=== PATIENT | female | born 1945 | race Caucasian/White ===

== ENCOUNTER → 2018-10-03 | Outpatient (CLI) | payer MEDICARE ==
--- NOTE | 2018-10-06 12:00 | MM ---
Reason for exam: screening (asymptomatic). Last mammogram was performed 1 year and 1 month ago. History: Patient is postmenopausal. Family history of breast cancer in cousin at age 60. MG 3D Screening Mammo W/Cad Bilateral CC and MLO view(s) were taken. Prior study comparison: September 06, 2017, bilateral MG 3d screening mammo w/cad. August 31, 2016, bilateral MG 3d screening mammo w/cad. There are scattered fibroglandular densities. There are benign-appearing bilateral breast calcifications, The right greater than the left. No suspicious abnormality. No significant changes when compared with prior studies. ASSESSMENT: Benign, BI-RAD 2 RECOMMENDATION: Routine screening mammogram of both breasts in 1 year.
== END | disposition home or self-care (01) ==
LOC: RADMAMWWP 10:38
PROVIDERS: ATTEND Obstetrics & Gynecology
DX: Z12.31 Encounter for screening mammogram for malignant neoplasm of breast (principal); Z80.3 Family history of malignant neoplasm of breast
CPT/HCPCS: 77063; 77067

== ENCOUNTER → 2019-02-06 | Outpatient (CLI) | payer MEDICARE ==
--- NOTE | 2019-02-06 22:11 | MR ---
EXAMINATION TYPE: MR knee LT wo con DATE OF EXAM: 02/06/2019 COMPARISON: NONE HISTORY: Left knee pain per order. Outer pain for 4 months per patient. TECHNIQUE: Multiplanar, multisequence images of the knee is performed without IV contrast. FINDINGS: MEDIAL MENISCUS: Anterior and posterior horns are intact without tear. LATERAL MENISCUS: Anterior and posterior horns are intact without tear. CRUCIATE LIGAMENTS: The anterior and posterior cruciate ligaments are intact and unremarkable. COLLATERAL LIGAMENTS: The medial collateral ligament and lateral collateral ligament complex are inta ct and unremarkable. EXTENSOR MECHANISM: Visualized quadriceps and patellar tendons are intact. EFFUSION: No significant suprapatellar joint effusion. POPLITEAL CYST: No popliteal/montes cyst. TRICOMPARTMENT SPACES: Mild tricompartment joint space loss. No significant spurring. CARTILAGE: No significant chondromalacia patella. Tricompartment cartilage fairly well maintained. BONE MARROW SIGNAL: Foci of diminished T1 and increased T2 signal possible subchondral cysts along th e posterior aspect of the distal medial femoral condyle seen best on axial image 11. OTHER: No additional significant abnormality is appreciated. IMPRESSION: No meniscal or ligamentous tear. Mild tricompartment degenerative changes as detailed abo ve
== END | disposition home or self-care (01) ==
LOC: RADMRIMAIN 08:07
PROVIDERS: ATTEND Orthopaedic Surgery
DX: M17.12 Unilateral primary osteoarthritis, left knee (principal)

== ENCOUNTER → 2020-03-19 | Outpatient (CLI) | payer MEDICARE ==
--- NOTE | 2020-03-20 10:59 | MM ---
Reason for exam: screening (asymptomatic). Last mammogram was performed 1 year and 6 months ago. History: Patient is postmenopausal. Family history of breast cancer in cousin at age 60. Physical Findings: A clinical breast exam by your physician is recommended on an annual basis and results should be correlated with mammographic findings. MG 3D Screening Mammo W/Cad Bilateral CC and MLO view(s) were taken. Prior study comparison: October 03, 2018, bilateral MG 3d screening mammo w/cad. September 06, 2017, bilateral MG 3d screening mammo w/cad. There are scattered fibroglandular densities. No significant changes when compared with prior studies. ASSESSMENT: Benign, BI-RAD 2 RECOMMENDATION: Routine screening mammogram of both breasts in 1 year.
== END | disposition home or self-care (01) ==
LOC: RADMAMWWP 09:54
PROVIDERS: ATTEND Obstetrics & Gynecology
DX: Z12.31 Encounter for screening mammogram for malignant neoplasm of breast (principal)
CPT/HCPCS: 77063; 77067

== ENCOUNTER → 2021-03-05 | Outpatient (CLI) | payer MEDICARE ==
--- NOTE | 2021-03-09 09:27 | MM ---
Reason for exam: screening (asymptomatic). Last mammogram was performed 1 year ago. History: Patient is postmenopausal. Family history of breast cancer in cousin at age 60. Took hormonal contraceptives for 10 years. Physical Findings: A clinical breast exam by your physician is recommended on an annual basis and results should be correlated with mammographic findings. MG 3D Screening Mammo W/Cad Bilateral CC and MLO view(s) were taken. Prior study comparison: March 19, 2020, bilateral MG 3d screening mammo w/cad. October 03, 2018, bilateral MG 3d screening mammo w/cad. There are scattered fibroglandular densities. Benign vascular and oil cyst calcifications. No significant changes when compared with prior studies. ASSESSMENT: Negative, BI-RAD 1 RECOMMENDATION: Routine screening mammogram of both breasts in 1 year.
== END | disposition home or self-care (01) ==
LOC: RADMAMWWP 09:49
PROVIDERS: ATTEND Obstetrics & Gynecology
DX: Z12.31 Encounter for screening mammogram for malignant neoplasm of breast (principal); Z78.0 Asymptomatic menopausal state; Z80.3 Family history of malignant neoplasm of breast
CPT/HCPCS: 77063; 77067

== ENCOUNTER → 2022-04-01 | Outpatient (CLI) | payer MEDICARE ==
[~2022-04-01] MED LIST: SODIUM CHLORIDE 0.9% 500 ML 500 ML in EMPTY BAG 1 BAG IV PRN; ZOLEDRONIC ACID 5 MG in SODIUM CHLORIDE 0.9% 100 ML IV NR
[2022-04-01 11:18] VITALS: BP 158/81; PULSE 59; RESP 16; TEMP 98.5
== END ==
LOC: PROCWHC3 11:01
PROVIDERS: ATTEND Internal Medicine
DX: M81.0 Age-related osteoporosis without current pathological fracture (principal); Z88.8 Allergy status to other drugs, medicaments and biological substances
CPT/HCPCS: 96365; J3489

== ENCOUNTER 2022-04-20 12:13 | Emergency (ER) | payer MEDICARE ==
[2022-04-20 13:48] VITALS: RESP 16; TEMP 98.6
--- NOTE | 2022-04-20 14:29 | XR ---
EXAMINATION TYPE: XR hand complete LT DATE OF EXAM: 04/20/2022 CLINICAL HISTORY: Pain. TECHNIQUE: Frontal, lateral and oblique images of the left hand are obtained. COMPARISON: None. FINDINGS: There is no acute fracture/dislocation evident in the left hand. Moderate narrowing at the base of first metacarpal with bony reformation. Mild to moderate narrowing throughout the PIP and DI P joints of the phalanges. Severe triscaphe joint space narrowing. Overlying soft tissue is unremarka ble. IMPRESSION: As above.
[2022-04-20 15:52] LABS: Basophils % (A) 1 %; Eosinophils # (A) 0.1 k/uL (0-0.7); Eosinophils % (A) 1 %; HCT 41.8 % (34.0-46.0); HGB 12.9 gm/dL (11.4-16.0); Lymphocytes % (A) 29 %; MCV 90.3 fL (80.0-100.0); Mean Platelet Volume 7.2; Monocytes # (A) 0.6 k/uL (0-1.0); Monocytes % (A) 8 %; Neutrophils # (A) 3.9 k/uL (1.3-7.7); Neutrophils % (A) 58 %; Platelet Count 237 k/uL (150-450); RBC 4.63 m/uL (3.80-5.40); RDW 13.9 % (11.5-15.5); WBC 6.8 k/uL (3.8-10.6)
--- NOTE | 2022-04-20 15:56 | ED ---
Upper Extremity HPI - General Chief Complaint: Extremity Injury, Upper Stated Complaint: Lt Hand Pain/Inflammation Time Seen by Provider: 04/20/22 15:02 Source: patient, RN notes reviewed Mode of arrival: ambulatory Limitations: no limitations - History of Present Illness Initial Comments: 76-year-old female presents emergency Department chief complaint left thumb pain. Patient states that she had no injury over the last 2 days she's had severe pain redness and swelling her left first MCP region. Patient states she has severe pain with any movement. Patient denies any trauma no fevers or chills. She states she has no discomfort at rest on history gout no history of any rheumatoid arthritis no immune disorders. Patient is right-hand dominant. - Related Data Home Medications Medication Instructions Recorded Confirmed Albuterol Inhaler [Ventolin Hfa 2 puff INHALATION RT-QID 04/01/22 04/01/22 Inhaler] Amlodipine Besylate/Valsartan 1 each PO DAILY 04/01/22 04/01/22 [Amlodipine-Valsartan 5-160 mg] Ergocalciferol [Vitamin D2 (1250 1,250 mcg PO WEEKLY 04/01/22 04/01/22 Mcg = 96651 Iu)] Omeprazole 20 mg PO DAILY 04/01/22 04/01/22 atenoloL [Tenormin] 50 mg PO DAILY 04/01/22 04/01/22 Previous Rx's Medication Instructions Recorded methylPREDNISolone Dose Pack 4 mg PO DIRECTED #1 packet 04/20/22 [Medrol Dose Pack] Allergies Allergy/AdvReac Type Severity Reaction Status Date / Time prednisone AdvReac Chest Pain Verified 04/20/22 13:48 Review of Systems ROS Statement: Those systems with pertinent positive or pertinent negative responses have been documented in the HPI. ROS Other: All systems not noted in ROS Statement are negative. Past Medical History Past Medical History: Hypertension, Osteoarthritis (OA) Additional Past Medical History / Comment(s): osteoporosis History of Any Multi-Drug Resistant Organisms: None Reported Past Surgical History: Appendectomy, Cholecystectomy Past Psychological History: No Psychological Hx Reported Smoking Status: Current every day smoker Past Alcohol Use History: None Reported Past Drug Use History: None Reported General Exam Limitations: no limitations General appearance: alert, in no apparent distress Head exam: Present: atraumatic, normocephalic, normal inspection Respiratory exam: Present: normal lung sounds bilaterally. Absent: respiratory distress, wheezes, rales, rhonchi, stridor Cardiovascular Exam: Present: regular rate, normal rhythm, normal heart sounds. Absent: systolic murmur, diastolic murmur, rubs, gallop, clicks Extremities exam: Present: other (Left thumb there is moderate swelling, erythema at the first MCP region severe pain with passive and active range of motion, tenderness palpation neurovascular intact radial pulses less than 2 seconds there is some pain proximal left thumb) Skin exam: Present: warm, dry, intact Course Vital Signs 04/20/22 13:44 Temperature 98.6 F Pulse Rate 70 Respiratory 16 Rate Blood Pressure 190/84 O2 Sat by Pulse 99 Oximetry Medical Decision Making - Medical Decision Making 76 show presented for thumb pain. Patient has significant arthritis and x-ray. Labwork unremarkable. Patient was evaluated by Dr. Ruby in the emergency department felt this is also inflammatory arthritis. Patient has tolerated oral steroids in the past and will be discharged on Medrol Dosepak, Tylenol 3 starter pack and follow-up in office. Patient we given a thumb spica splint. - Lab Data Result diagrams: 04/20/22 15:25 04/20/22 15:25 Lab Results 04/20/22 04/20/22 04/20/22 Range/Units 15:25 15:25 15:25 WBC 6.8 (3.8-10.6) k/uL RBC 4.63 (3.80-5.40) m/uL Hgb 12.9 (11.4-16.0) gm/dL Hct 41.8 (34.0-46.0) % MCV 90.3 (80.0-100.0) fL MCH 28.0 (25.0-35.0) pg MCHC 31.0 (31.0-37.0) g/dL RDW 13.9 (11.5-15.5) % Plt Count 237 (150-450) k/uL MPV 7.2 Neutrophils % 58 % Lymphocytes % 29 % Monocytes % 8 % Eosinophils % 1 % Basophils % 1 % Neutrophils # 3.9 (1.3-7.7) k/uL Lymphocytes # 2.0 (1.0-4.8) k/uL Monocytes # 0.6 (0-1.0) k/uL Eosinophils # 0.1 (0-0.7) k/uL Basophils # 0.0 (0-0.2) k/uL ESR 20 (0-20) mm/hr Sodium 134 L (137-145) mmol/L Potassium 4.1 (3.5-5.1) mmol/L Chloride 103 (98-107) mmol/L Carbon Dioxide 24 (22-30) mmol/L Anion Gap 7 mmol/L BUN 25 H (7-17) mg/dL Creatinine 0.92 (0.52-1.04) mg/dL Est GFR (CKD-EPI)AfAm 70 (>60 ml/min/1.73 sqM) Est GFR (CKD-EPI)NonAf 61 (>60 ml/min/1.73 sqM) Glucose 84 (74-99) mg/dL Plasma Lactic Acid Nathen 0.6 L (0.7-2.0) mmol/L Uric Acid 4.3 (3.7-7.4) mg/dL Calcium 8.8 (8.4-10.2) mg/dL Total Bilirubin 0.2 (0.2-1.3) mg/dL AST 22 (14-36) U/L ALT 9 (4-34) U/L Alkaline Phosphatase 93 (38-126) U/L C-Reactive Protein 0.5 (<1.0) mg/dL Total Protein 7.2 (6.3-8.2) g/dL Albumin 3.9 (3.5-5.0) g/dL Disposition Clinical Impression: Inflammatory arthritis Disposition: HOME SELF-CARE Condition: Stable Instructions (If sedation given, give patient instructions): Arthritis (ED) Additional Instructions: Please return to the Emergency Department if symptoms worsen or any other concerns. Prescriptions: methylPREDNISolone Dose Pack [Medrol Dose Pack] 4 mg PO DIRECTED #1 packet Is patient prescribed a controlled substance at d/c from ED?: No Referrals: Manas Joiner MD [Primary Care Provider] - 1-2 days Daxa Dalton DO [Doctor of Osteopathic Medicine] - 1-2 days Time of Disposition: 17:31
[2022-04-20 16:02] LABS: Albumin 3.9 g/dL (3.5-5.0); C Reactive Protein 0.5 mg/dL (<1.0); Calcium 8.8 mg/dL (8.4-10.2); Potassium 4.1 mmol/L (3.5-5.1); Total Bilirubin 0.2 mg/dL (0.2-1.3); Total Protein 7.2 g/dL (6.3-8.2); Uric Acid 4.3 mg/dL (3.7-7.4)
[2022-04-20 16:36] LABS: Erythrocyte Sedimentation Rate 20 mm/hr (0-20)
[2022-04-20 17:46] VITALS: BP 180/92; PULSE 60
== END 2022-04-20 17:46 | disposition home or self-care (01) ==
LOC: EC 12:13
DX: M13.842 Other specified arthritis, left hand (principal); I10 Essential (primary) hypertension; F17.200 Nicotine dependence, unspecified, uncomplicated; Z88.8 Allergy status to other drugs, medicaments and biological substances; Z79.899 Other long term (current) drug therapy
CPT/HCPCS: 36415; 80053; 83605; 84550; 85025; 85652; 86140; 99283